=== PATIENT | male | born 1965 | race African-American/Black ===

== ENCOUNTER 2018-09-02 21:17 | Emergency (ER) | payer OTHER ==
[2018-09-02 21:22] VITALS: BP 147/104; PULSE 72; TEMP 98; BMI 25.1
--- NOTE | 2018-09-02 21:27 | PDOC ---
Rapid Medical Evaluation Chief Complaint: Nausea Time Seen by Provider: 09/02/18 21:21 Medical Evaluation: Allergies Allergy/AdvReac Type Severity Reaction Status Date / Time No Known Allergies Allergy Verified 05/02/15 15:26 09/02/18 21:21 I have performed a brief in-person evaluation of this patient. The patient presents with a chief complaint of: chronic hiccoughs, states feels acid feeling but no CP/ Palp/ Pertinent physical exam findings: hiccoughs every 10-20secs. I have ordered the following:EKG The patient will proceed to the ED for further evaluation 09/02/18 21:28
[2018-09-03] MEDS ORDERED: CARVEDILOL 12.5 MG TABLET (FP) PO ONE (00:07)
[2018-09-03] MEDS ORDERED: METOCLOPRAMIDE HCL 10 MG TABLET (FP) PO ONE ×4 (00:07→02:19)
--- NOTE | 2018-09-03 00:16 | PDOC ---
*Physical Exam - Vital Signs Last Vital Signs Temp Pulse Resp BP Pulse Ox 98.0 F 72 18 147/104 H 99 09/02/18 21:19 09/02/18 21:19 09/02/18 21:19 09/02/18 21:19 09/02/18 21:19 Medical Decision Making - Medical Decision Making 09/03/18 00:12 Luis Enrique Proctor is a 53yo man with a PMH of HTN, CHF, alcohol abuse, and marijuana abuse who presents today reporting 4 days of intractable hiccups that are preventing him from eating or sleeping. He additionally reports feeling heartburn but denies any chest pain, SOB, nausea, lightheadedness, or sweating. He was noted to be in a-fib with a HR in the 120's on presentation; it is unknown whether this is a new diagnosis. - Mr Prcotor reports being non-compliant with his medications. Giving home dose of carvedilol 12.5mg for a-fib, tachycardia. - Alchohol abuse and GERD are both potential causes of hiccups. Will give reglan 10mg initially to stop hiccups. *DC/Admit/Observation/Transfer - Referrals Referrals: ON STAFF,NOT [Primary Care Provider] - - Patient Instructions - Post Discharge Activity
[2018-09-03] MEDS ORDERED: FAMOTIDINE 20 MG/50 ML IVPB 20 MG/50 ML MG IVPB ONE ×2 (00:57→01:01)
[2018-09-03] MEDS ORDERED: MAG HYDROX/AL HYDROX/SIMETH 30 ML UNIT-DOSE CUP PO ONE (00:57)
[2018-09-03] MEDS ORDERED: chlorproMAZINE HCL 25 MG TABLET PO ONE (00:58)
[2018-09-03] MEDS ORDERED: MAG HYDROX/AL HYDROX/SIMETH 30 ML UNIT-DOSE CUP ONE (01:01)
--- NOTE | 2018-09-03 01:10 | PDOC ---
History of Present Illness - General Chief Complaint: Nausea Stated Complaint: HICCUPS Time Seen by Provider: 09/02/18 21:21 - History of Present Illness Initial Comments: Luis Enrique Proctor is a 53yo man with a PMH of HTN, CHF, anxiety/depression, and alcohol and marijuana abuse who presents reporting 4 days of intractable hiccups. He states that they have not stopped since they started. He has tried several home cures including drinking cold water, holding his breath, and Tums without any success. Mr Proctor states that the hiccups have prevented him from eating or sleeping well. He denies any nausea, chest pain, SOB, or change in bowel habits but does endorse some heartburn. He has never had anything similar happen before. Mr Proctor also reports that he is non-compliant with his medications, only taking his meds roughly 3x per week. He does not know his medical history, only reporting that he has "heart problem." He additionally report drinking 1 pint of alcohol every day for the past several weeks but denies drinking previously. He also reports smoking marijuana frequently. Despite denying previous drinking , per chart review he was previously at detox/rehab for alcohol abuse. Past History - Past Medical History Allergies/Adverse Reactions: Allergies Allergy/AdvReac Type Severity Reaction Status Date / Time No Known Allergies Allergy Verified 09/02/18 21:22 Home Medications: Ambulatory Orders Aspirin [ASA -] 81 mg PO DAILY 05/02/15 Carvedilol 12.5 mg PO BID 05/02/15 Furosemide [Lasix -] 40 mg PO DAILY 05/02/15 Hydralazine HCl 50 mg PO QID 05/02/15 Isosorbide Mononitrate [Isosorbide Mononitrate ER] 30 mg PO DAILY 05/02/15 Lisinopril [Prinivil -] 40 mg PO DAILY 05/02/15 Nitroglycerin Sublingual [Nitrostat -] 0.4 mg SL ONCE PRN 05/02/15 Simvastatin [Zocor -] 40 mg PO HS 05/02/15 Baclofen 10 mg PO TID 5 Days #15 tablet 09/03/18 Famotidine [Pepcid] 20 mg PO DAILY 7 Days #7 tablet 09/03/18 Anemia: No Asthma: No Cancer: No Cardiac Disorders: No CVA: No COPD: No CHF: Yes Dementia: No Diabetes: No GI Disorders: No Disorders: No HTN: Yes Hypercholesterolemia: Yes Kidney Stones: No Liver Disease: No Seizures: No Thyroid Disease: No - Reproductive History Testicular Surgery: No - Suicide/Smoking/Psychosocial Hx Smoking History: Current every day smoker Have you smoked in the past 12 months: Yes Number of Cigarettes Smoked Daily: 30 Information on smoking cessation initiated: Yes 'Breaking Loose' booklet given: 05/02/15 Hx Alcohol Use: Yes Drug/Substance Use Hx: Yes Substance Use Type: Alcohol, Marijuana Hx Substance Use Treatment: No Review of Systems - Review of Systems Comments:: General: No fevers, no chills, no weight or appetite change, no malaise HEENT: No changes in vision, no changes in hearing, no congestion, no sore throat CV: No chest pain, no palpitations, no LE edema Pulm: No SOB, no cough, no wheezing GI: No nausea or vomiting, no change in bowel habits, no melena. +heartburn, + hiccups : No frequency, no urgency, no dysuria Musc: No back pain, no joint swelling, no recent injury Skin: No rash, no lesions, no erythema Endo: No excessive thirst, no heat/cold intolerance Heme: No unusual bruising or bleeding, no swollen glands Neuro: No syncope, no numbness/tingling, no focal weakness Vasc: No claudication Psych: No recent change in mood, no SI or HI *Physical Exam - Vital Signs Last Vital Signs Temp Pulse Resp BP Pulse Ox 98.0 F 72 18 147/104 H 99 09/02/18 21:19 09/02/18 21:19 09/02/18 21:19 09/02/18 21:19 09/02/18 21:19 - Physical Exam Comments: General: Comfortable, no acute distress HEENT: PERRL, EOMI, MMM, voice normal, normal neck ROM, no LAD Cards: RRR, no murmur appreciated Pulm: Comfortable on room air, clear to auscultation bilaterally Abd: Soft, nontender, nondistended : No CVA tenderness Ext: Atraumatic. No LE edema. ROM intact. Strength 5/5 and equal bilaterally Vasc: Extremities WWP. Palpable radial and pedal pulses bilaterally Skin: Normal color, no rashes or lesions Neuro: A&Ox3, CN grossly intact, normal speech, motor/sensory grossly intact and symmetric Psych: Mood appropriate to situation ED Treatment Course - LABORATORY CBC & Chemistry Diagram: 09/03/18 01:40 09/03/18 01:40 - Medications Given in the ED: ED Medications Discontinued Medications Generic Name Dose Route Start Last Admin Trade Name Domingo PRN Reason Stop Dose Admin Carvedilol 12.5 mg 09/03/18 00:07 09/03/18 00:42 Coreg - PO 09/03/18 00:08 Not Given ONCE ONE Metoclopramide HCl 10 mg 09/03/18 00:07 09/03/18 00:41 Reglan - PO 09/03/18 00:08 10 mg ONCE ONE Administration Medical Decision Making - Medical Decision Making 09/03/18 00:12 Luis Enrique Proctor is a 53yo man with a PMH of HTN, CHF, alcohol abuse, and marijuana abuse who presents today reporting 4 days of intractable hiccups that are preventing him from eating or sleeping. He additionally reports feeling heartburn but denies any chest pain, SOB, nausea, lightheadedness, or sweating. - Mr Proctor reports being non-compliant with his medications. - Alchohol abuse and GERD are both potential causes of hiccups. Will give reglan 10mg initially to stop hiccups. 09/03/18 00:56 - EKG reviewed. Small ST depresions in II, III, aVF - Given significant cardiac history, will check CBC, CMP, lipase, trop - No improvement after receiving reglan. Will give chlorpromazine, pepcid, maalox 09/03/18 01:25 - Hiccups stopped. Discontinuing chlorpromazine. Maalox and pepcid already given. 09/03/18 02:24 - Hiccups restarted, giving additional 10mg reglan - Labs reviewed. CBC WNL. Chemistry with elevated Cr to 1.3, only previous value in chart 1.1. Likely his baseline - Lipase elevated to 700's, roughly twice upper limit of normal. Does not meet criteria for pancreatitis, but Mr Proctor should follow up with his primary physician. Discussed follow up; he agrees and understands - Troponin negative - Will PO challenge. If able to tolerate PO, will discharge home 09/03/18 03:21 - Tolerated liquids - Continued hiccups. Given 10mg baclofen with some improvement - Will discharge home with prescriptions for baclofen and pepcid. Mr Proctor has an apppointment scheduled with his PMD for later this week. Encouraged to make it to the appointment. Discussed acid reflux control as well as cutting back/quitting alcohol use to potentially help control his hiccups. Mr Proctor states understanding and agreement with this plan. Discussed with Dr Perez. Nati Amado PGY1 *DC/Admit/Observation/Transfer Diagnosis at time of Disposition: Intractable hiccups - Discharge Dispostion Disposition: HOME Condition at time of disposition: Stable Decision to Admit order: No - Prescriptions Prescriptions: Baclofen 10 mg PO TID 5 Days #15 tablet Famotidine [Pepcid] 20 mg PO DAILY 7 Days #7 tablet - Referrals Referrals: ON STAFF,NOT [Primary Care Provider] - Naveed Warner MD [Staff Physician] - - Patient Instructions Printed Discharge Instructions: DI for Hiccups Additional Instructions: Discharge Instructions: - You were seen in the ED for hiccups - Your hiccups resolved with a medication called reglan - Make an appointment to follow up with your primary physician within the next week - You reported drinking alcohol daily over the past few weeks. It is strongly recommended that you cut back or quit drinking. Please consider detox if needed to help you quit drinking. - Make sure that you take all of your medications as prescribed by your regular doctor - Seek medical care at the closest emergency department if you have chest pain, especially if it is tight/squeezing pain, accompanied by nausea, vomiting, lightheadedness, shortness of breath, or palpitations. - Post Discharge Activity
--- NOTE | 2018-09-03 01:39 | PDOC ---
Attending Attestation - Resident Resident Name: IngrisNati - ED Attending Attestation I have performed the following: I have examined & evaluated the patient, The case was reviewed & discussed with the resident, I agree w/resident's findings & plan, Exceptions are as noted - HPI HPI: 09/03/18 01:39 53 M with h/o HTN, CHF, anxiety/depression, and alcohol and marijuana abuse presenting with hiccups. Pt states that he drank a large amount of alcohol over the past week or so, and 4 days ago began to experience hiccups that have been persistent. He denies abdominal pain, denies N/V/D. Denies abdominal distention. States that he does have some heartburn associated with the hiccups but denies CP/SOB. Pt has attempted home remedies, such as drinking cold water, holding his breath , and taking tums, with no relief. - Physicial Exam PE: 09/03/18 01:41 GENERAL: Awake, alert, and fully oriented, in no acute distress. HEAD: No signs of trauma EYES: PERRLA, EOMI, sclera anicteric, conjunctiva clear ENT: Auricles normal inspection, hearing grossly normal, nares patent, oropharynx clear without exudates. Moist mucosa NECK: Nontender, no stepoffs, Normal ROM, supple, no lymphadenopathy, JVD, or masses LUNGS: Breath sounds equal, clear to auscultation bilaterally. No wheezes, and no crackles HEART: Regular rate and rhythm, normal S1 and S2, no murmurs, rubs or gallops ABDOMEN: Soft, nontender, normoactive bowel sounds. No guarding, no rebound. No masses EXTREMITIES: Normal range of motion, no edema. No clubbing or cyanosis. No cords, erythema, or tenderness NEUROLOGICAL: Cranial nerves II through XII intact. 5/5 strength and sensation in all extremities, Normal speech, normal gait, normal cerebellar function SKIN: Warm, Dry, normal turgor, no rashes or lesions noted. - Medical Decision Making 09/03/18 01:41 53 M with hiccups x 4 days. Likely 2/2 GI irritation from recent heavy drinking. Pt received reglan in ED, with prompt resolution of his hiccups. Of note, pt's EKG shows TWI in inferior leads. No prior to compare. Pt with no chest pain/SOB. Will r/o ACS with single set of cardiac enzymes. - Labs, trop - GI cocktail 09/03/18 03:34 Labs notable for mildly elevated lipase. However, <3x upper limit of normal. Pt without abdominal pain, tolerating PO in ED. No clinical signs of pancreatitis. Trop negative Pt's hiccups likely GI-related. Will DC with GI f/u. Pt is well appearing, with normal vitals. Clinically stable for DC at this time. I discussed the physical exam findings, ancillary test results and final diagnoses with the patient. I answered all of the patient's questions. The patient was satisfied with the care received and felt comfortable with the discharge plan and treatment plan. The patient agrees to follow up with the primary care physician within 24-72 hours.
[2018-09-03 01:48] LABS: BASO % 0.8 % (0-2.0); EOS % 0.8 % (0-4.5); HEMATOCRIT 41.6 % (35.4-49); LYMPH % 24.5 % (8-40); MCH 28.2 pg (25.7-33.7); MCHC 33.7 g/dl (32.0-35.9); MEAN CELL VOLUME 83.6 fl (80-96); MEAN PLT VOLUME 8.5 fl (7.5-11.1); MONO % 7.7 % (3.8-10.2); NEUT % 66.2 % (42.8-82.8); PLATELET COUNT 232 K/MM3 (134-434); RBC 4.98 M/mm3 (4.00-5.60); RDW 16.5 % (11.9-15.9); WHITE BLOOD COUNT 8.1 K/mm3 (4.0-10.0)
[2018-09-03 02:13] LABS: ALBUMIN 3.6 g/dl (3.4-5.0); ALK PHOS 89 U/L (45-117); ANION GAP 4 MMOL/L (8-16); BILIRUBIN,TOTAL 0.4 mg/dL (0.2-1); BLOOD UREA NITROGEN 11 mg/dL (7-18); CALCIUM 8.6 mg/dL (8.5-10.1); CHLORIDE 104 mmol/L (98-107); CO2 32 mmol/L (21-32); CREATININE 1.4 mg/dL (0.55-1.3); GLUCOSE,RANDOM 107 mg/dL (74-106); LIPASE 773 U/L (73-393); POTASSIUM 4.1 mmol/L (3.5-5.1); SGOT/AST 12 U/L (15-37); SGPT/ALT 15 U/L (13-61); SODIUM 140 mmol/L (136-145); TOT PROT 6.5 g/dl (6.4-8.2)
[2018-09-03] MEDS ORDERED: BACLOFEN 10 MG TABLET (FP) PO ONE (02:41)
[2018-09-03] MEDS ORDERED: BACLOFEN 10 MG TABLET (FP) ONE (02:49)
--- NOTE | 2018-09-03 12:07 | EKG ---
Test Reason : Blood Pressure : / mmHG Vent. Rate : 072 BPM Atrial Rate : 072 BPM P-R Int : 140 ms QRS Dur : 100 ms QT Int : 410 ms P-R-T Axes : 079 048 -40 degrees QTc Int : 448 ms NORMAL SINUS RHYTHM LEFT VENTRICULAR HYPERTROPHY WITH REPOLARIZATION ABNORMALITY ABNORMAL ECG NO PREVIOUS ECGS AVAILABLE Confirmed by MD ASHA, ANDREW ([id number]) on 09/03/2018 12:07:27 PM Referred By: Confirmed By:ANDREW BARRY MD
== END 2018-09-03 03:52 | disposition home or self-care (01) ==
LOC: JER 21:17
PROC: 3E033GC Introduction of Other Therapeutic Substance into Peripheral Vein, Percutaneous Approach (ICD-10-PCS; principal; 2018-09-02)
DX: R06.6 Hiccough (principal); I11.0 Hypertensive heart disease with heart failure; I50.9 Heart failure, unspecified; F41.8 Other specified anxiety disorders; F32.9 Major depressive disorder, single episode, unspecified; F10.10 Alcohol abuse, uncomplicated; F12.10 Cannabis abuse, uncomplicated; F17.210 Nicotine dependence, cigarettes, uncomplicated
CPT/HCPCS: 36415; 80053; 82550; 82553; 83690; 84484; 85025; 93005; 93010; 96365; 99282-25; J0475